=== PATIENT | male | born 1950 | race Caucasian/White ===

== ENCOUNTER 2016-12-31 09:46 | Inpatient (IN) | payer OTHER ==
[~2016-12-31] VITALS: Ht 180.3 cm; Wt 134.1 kg
[2016-12-31] VITALS (9 sets, daily range): BP systolic 111–142; BP diastolic 60–81; PULSE 76–99; RESP 16–20; O2SAT 92–98
[~2016-12-31 09:46] MED LIST: AMLO5TAB2 PO; ASPI-973 PO; Bupivacaine Liposome 1.3% 20 mL Inj INFILTRATE ONE; CeFAZolin Inj 3 GM in IV Premix IV ONE; GLIM1TAB PO; HYDR-3825 PO; LISI-567 PO; Lactated Ringer's 1,000 ML IV ONE; MELO-253 PO; METF1000 PO; METO25TA6 PO; MULT-1018 PO; NITR0.4T6 SL; OXYC5TAB72 PO; PRAV40TA PO; Vancomycin Inj 2,000 MG in 0.9% Sodium Chloride 500 ML IV ONE
[2016-12-31] MEDS ORDERED: Lactated Ringer's 1,000 ML IV ONE ×2 (10:30→13:20)
[2016-12-31] MEDS ORDERED: CeFAZolin Inj 2 gm / 50mL D5W IV ONE (11:13)
--- NOTE | 2016-12-31 11:28 | PCM.HPANE ---
Patient Data Surgeon Admitting Provider: Attending Provider:Wesley Be MD Primary Care Physician:Leo Mukherjee PA-C Other Provider:Heriberto Coretz Anesthesia Reason for Visit Left Knee Arthritis Ht/WT & BMI Height (Feet): 6 Height (Inches): 0 Weight (Kilograms): 131.8 Body Mass Index 39.00 Allergies Coded Allergies: atorvastatin (Verified Adverse Reaction, Severe, elevates ALT, 09/07/16) Past Anesthesia History Anesthesia History: Positive for:: Anesthesia Reactions (unable to do spinal at 09/2016 procedure), Difficult Intubation (required IV induction with glidescope last surgery), Denies:: Malignant Hyperthermia Diabetes History Hx Diabetes?: Yes Type of Diabetes: Type II Glycemic Control: Oral Medication Current Bedside Blood Glucose: 149 MRSA MRSA: No Medications Blood Thinner: Aspirin Hypertension Medication: Yes Home Meds Incl Beta Freddy: Yes Reported Medications Pravastatin 40 Mg [id number] Mg PO DAILY Ref 0 12/27/16 oxyCODONE 5 Mg Tablet5 Mg PO Q4H PRN For Pain Ref 0 12/27/16 Nitroglycerin SL 0.4 Mg Tab.subl0.4 Mg SL PRN For Chest Pain 12/27/16 Multivitamin (Multi Vitamin Daily)1 Each Tablet1 Each PO DAILY 30 Days Ref 0 12/27/16 Metoprolol Tartrate 25 Mg Lvafmo66 Mg PO BID 30 Days Ref 0 12/27/16 Metformin (Glucophage)1,000 Mg Tablet1,000 Mg PO BID Ref 0 12/27/16 Meloxicam 15 Mg Vtszmi13 Mg PO DAILY 30 Days Ref 0 12/27/16 Lisinopril 20 Mg Fxqgqg74 Mg PO DAILY 30 Days Ref 0 12/27/16 Hydrocodone-Acetaminophen 7.5-325 mg 1 Each Tablet1 Tablet PO Q4H PRN For Pain Ref 0 12/27/16 Glimepiride 1 Mg Tablet2 Mg PO DAILYAC #30 TABLET Ref 0 12/27/16 Aspirin 81 Mg Mhxxar89 Mg PO DAILY Ref 0 12/27/16 Amlodipine 5 Mg Tablet5 Mg PO DAILY Ref 0 12/27/16 Discontinued Reported Medications Meloxicam 15 Mg Cjtosi46 Mg PO DAILY 30 Days Ref 0 09/07/16 Omeprazole Magnesium (Prilosec Otc)20 Mg Tablet.dr20 Mg PO DAILY #1 PKG Ref 0 06/12/16 Nitroglycerin SL (Nitrostat)0.4 Mg Tab.subl0.4 Mg SL Q5MIN PRN For Chest Pain # 1 BOTTLE 06/12/16 Multivitamin (Multi Vitamin Daily)1 Each Tablet1 Each PO DAILY 30 Days Ref 0 06/12/16 Metoprolol Tartrate 25 Mg Isvfau87 Mg PO BID 30 Days Ref 0 06/12/16 Metformin (Glucophage)1,000 Mg Tablet1,000 Mg PO BID Ref 0 06/12/16 Lisinopril 20 Mg Vbfwvz12 Mg PO DAILY 30 Days Ref 0 06/12/16 Glimepiride 1 Mg Tablet2 Mg PO DAILYAC #30 TABLET Ref 0 06/12/16 Amlodipine 5 Mg Tablet5 Mg PO DAILY Ref 0 06/12/16 Last Time Dose Received Took metoprolol and amlodipine today Held ASA and meloxicam for over one week Held lisinopril and DM meds today History History of ENT Problems?: Yes HEENT History: Positive for:: Cataracts (hx of- ) Difficult Intubation (required IV induction with glidescope last surgery) Denies:: Hearing Problem Hx of Heart Problems?: Yes Cardiovascular History: Positive for:: Cardiac Surgery (CABG x 1 vessel 2010, heart cath 05/2011) Chest Pain (2010) Hypertension (hyperlipidemia) Denies:: AICD Heart Murmur Irregular Heartbeat Pacemaker Valvular Heart Disease Other History/Comments Cardiac and anesth records reviewed. No CP. Hx of Respiratory Problem?: Yes Respiratory History: Positive for:: Dyspnea (with heavy exertion ) Denies:: Asthma COPD Emphysema Oxygen Administration Pneumonia Tuberculosis Use of C-PAP Machine (FAHAD+, no electricity to run CPAP) Hx Neurologic Problems?: No Neurological History: Denies:: CVA Multiple Sclerosis Parkinson's Disease Seizures Hx of GI Problems?: Yes Gastrointestinal History: Positive for:: Gastroesphageal Reflux Heartburn Liver Disease (REDDY) Denies:: Cirrhosis Gall Bladder Disease Hx of Problems?: No Genitourinary History: Denies:: Kidney Stones Urinary Tract Infection Male Hx: Denies:: Prostate Problems Scrotal Mass Testicular Surgery Skin History: Denies:: History Skin Disorders? Pressure Ulcers Hx Musculoskeletal Problems?: Yes Musculoskeletal History: Positive for:: Degenerative Joint Joint Replacement (right knee 09/2016) Musculoskeletal Trauma (left knee current admission problem) Osteoarthritis Hx of Psycho/Social Problems?: No Hx Surgeries?: Yes (HEART CATH/CABG,LT ROTATOR CUFF RPR,RT KNEE SCOPE,RT GR TOE FUSION,UMBILICA) Hx Any Other Health Problems?: Yes Other History: Positive for:: Hospitalization Denies:: Cancer Endocrine Disease Thyroid Disease History Blood Transfusions: Positive for:: Accept Blood Products? Denies:: Blood Transfusions Hx Diabetes: YesBedside Blood Glucose: 149 Hx Alcohol Use: Yes (occasional )Hx Substance Use: No Smoking Status: Current Every Day Smoker Have You Smoked inLast 12 mo: Yes Stop/Bang S-Snoring: Do You Snore Loudly: Yes T-Tired: feel tired, fatigued: No O-Obsered: Observed not breath: No P-Blood Pressure: treated: Yes B- Body Mass Index > 35 kg/m2: Yes A- Age over 50: Yes N- Neck Large Circumference: Yes G- Gender Male: Yes FAHAD Total Score: 6 Risk Assessment Category Category 1A: Patient has history of documented sleep apnea, and HAS NOT received any narcotic, sedative or anesthesia administration during this stay. Category 1B: Patient has history of documented sleep apnea, and HAS received any narcotic , sedative or anesthesia administration during this stay Category 2: Patient has SUSPECTED Obstructive Sleep Apnea, and HAS received any narcotic , sedative or anesthesia administration during this stay. Category 3: Patient has SUSPECTED Obstructive Sleep Apnea and HAS NOT received narcotic, sedative or anesthesia administration during this stay. Category 4: Outpatient in Procedural Areas with known sleep apnea or who screen positive for High Risk via the STOP/BANG questionnaire. Exam Exam Vital Signs Vital Signs Date Time Temp Pulse Resp B/P Pulse Ox O2 Delivery O2 Flow Rate FiO2 12/31/16 10:59 36.0 76 18 142/76 96 Room Air General Appearance: Alert, Oriented X3 HEENT/AIRWAY: MP 3, Neck Movement (FROM) Lungs: Clear to Auscultation, Clear to Percussion Heart: Exam Unremarkable, Regular Rate/Rhythm Meds/Labs/Diagnostics Admission Meds Current Medications Lactated Ringer's (Lr) 1,000 ml @ ud STK-MED ONCE IV Last administered on 12/31t 10:30; Start 12/31/16 at 10:30; Stop 12/31/16 at 10:58; Status DC Bedside Blood Glucose: 149 Labs Test 12/31/16 10:47 Sodium Level 136mEq/L (134-144) Potassium Level 4.6mEq/L (3.5-5.2) Chloride Level 97mEq/L (97-108) Carbon Dioxide Level 27mmol/L (18-29) Blood Urea Nitrogen 16mg/dL (8-27) Creatinine 0.67mg/dL (0.76-1.27) Estimat Glomerular Filtration Rate 127mL/min (>59) Glucose Level 156mg/dL (60-99) Calcium Level 9.4mg/dL (8.5-10.1) Plan Impression Patient chart reviewed, patient interviewed and anesthestic plan with risks, benefits, and alternatives discussed, and informed consent obtained. NPO Status: 2199 ASA Physical Status: ASA3 Severe Disease Anesthetic Plan: Regional Block (FNB), SAB (With GA backup) Bene/Risks/Altern/Consents: Yes HP Complete Prior to Induction: Yes Tripp Burr MD Dec 31, 2016 11:28
[2016-12-31] MEDS ORDERED: Tranexamic Acid 100 mg/mL 10 mL Inj ONE (12:29)
[2016-12-31] MEDS ORDERED: Bupivacaine Liposome 1.3% 20 mL Inj ONE (12:29)
[2016-12-31] MEDS ORDERED: 0.9% Sodium Chloride 100 ML ONE (12:30)
[2016-12-31] MEDS ORDERED: Lactated Ringer's 1,000 ML IV SCH ×2 (13:31→16:40)
[2016-12-31] MEDS ORDERED: Lactated Ringer's 500 ML IV PRN (13:31)
[2016-12-31] MEDS ORDERED: Gentamicin 40 mg/mL 2 mL Inj IRRIGATION ONE (13:32)
[2016-12-31] MEDS ORDERED: Bupivacaine Liposome 1.3% 20 mL Inj INFILTRATE ONE (13:33)
[2016-12-31] MEDS ORDERED: Bupivacaine-MPF 0.25%/EPI 30 mL Inj INFILTRATE ONE (13:33)
[2016-12-31] MEDS ORDERED: Phenylephrine 10,000 mCg/mL Inj IVPUSH PRN (13:35)
[2016-12-31] MEDS ORDERED: fentaNYL-PF 50 mCg/mL 2 mL Inj IVPUSH PRN (13:35)
[2016-12-31] MEDS ORDERED: Labetalol 5 mg/mL 4 mL Inj IV PRN (13:35)
[2016-12-31] MEDS ORDERED: Ondansetron 2 mg/mL 2 mL Inj IVPUSH PRN (13:35)
[2016-12-31] MEDS ORDERED: EPHEDrine Sulfate 50 mg/mL Inj IVPUSH PRN (13:35)
[2016-12-31] MEDS ORDERED: MetoCLOpramide 5 mg/mL 2 mL Inj IVPUSH PRN (13:35)
[2016-12-31] MEDS ORDERED: Atropine 0.4 mg/mL Inj IVPUSH PRN (13:35)
[2016-12-31] MEDS ORDERED: HYDROmorphone 1 mg/mL Inj IVPUSH PRN (13:35)
--- NOTE | 2016-12-31 14:59 | PCM.ANEP2 ---
Post Anesthesia Evaluation ASA/CMS Post Anesthesia VS in Patient's Normal Range?: Yes Resp Stable; Airway Patent?: Yes CV Function & Hydration Stable: Yes Mental Status Recovered?: Yes Pain control Satisfactory?: Yes N/V Control Satisfactory?: Yes Tripp Burr MD Dec 31, 2016 14:59
--- NOTE | 2016-12-31 14:59 | PCM.ANEP1 ---
Post Anesthesia Phase 1 PACU Phase 1 Assessment Vital Signs Vital Signs Date Time Temp Pulse Resp B/P Pulse Ox O2 Delivery O2 Flow Rate FiO2 12/31/16 10:59 36.0 76 18 142/76 96 Room Air Anesthetic Administered: SAB Level of Alertness: Awake, talking SMALL's with Equal Strength: No (SAB) Pain: No Nausea or Vomiting: No Oxygen Delivery: Simple Mask Lungs: Clear to Auscultation, Clear to Percussion Summary See anesth record for PACU VS. PACU VSS Tripp Burr MD Dec 31, 2016 14:59
[2016-12-31] MEDS ORDERED: Lidocaine PF 1% 30 mL Inj ONE (16:21)
[2016-12-31] MEDS ORDERED: fentaNYL-PF 50 mCg/mL 2 mL Inj ONE (16:21)
[2016-12-31] MEDS ORDERED: Ropivacaine-PF 0.5% 30 mL Inj ONE (16:21)
[2016-12-31] MEDS ORDERED: Dexamethasone 4 mg/mL Inj ONE (16:21)
[2016-12-31] MEDS ORDERED: Propofol 10,000 mCg/mL 20 mL Inj ONE (16:21)
[2016-12-31] MEDS ORDERED: EPHEDrine/NS 5 mg/mL 5 mL Syringe ONE (16:21)
[2016-12-31] MEDS ORDERED: Phenylephrine/NS 100 mCg/mL 10 mL Syringe IVPUSH ONE (16:21)
[2016-12-31] MEDS ORDERED: Ondansetron 2 mg/mL 2 mL Inj ONE (16:21)
--- NOTE | 2016-12-31 16:23 | DRSVH ---
PROCEDURE: X-RAY LEFT KNEE, ONE OR TWO VIEWS ([id number]) INDICATIONS: POST LEFT TKA TECHNIQUE: 3 views of the knee acquired. COMPARISON: [facility], , XR KNEE ARTHRITIC SERIES LT, 11/21/2016, 13:44. FINDINGS: Bones: Patient is status post left knee joint arthroplasty. Hardware components are in expected pos itions with near-anatomic alignment. Visualized bony structures demonstrate no acute fractures. Soft tissues: Overlying postoperative changes are noted including a surgical drain. IMPRESSION: 1. Expected postsurgical changes status post left knee arthroplasty. Dictated by: Raheem Tamayo M.D. on 12/31/2016 at 16:21 Approved by: Raheem Tamayo M.D. on 12/31/2016 at 16:22
[2016-12-31] MEDS ORDERED: Ondansetron 8 mg ODT Tablet PO PRN (16:40)
[2016-12-31] MEDS ORDERED: Ondansetron 2 mg/mL 2 mL Inj IV PRN (16:40)
[2016-12-31] MEDS ORDERED: MetoCLOpramide 5 mg/mL 2 mL Inj IV PRN (16:40)
[2016-12-31] MEDS ORDERED: LORazepam 0.5 mg Tablet PO PRN (16:40)
[2016-12-31] MEDS ORDERED: diphenhydrAMINE 25 mg Capsule PO PRN (16:40)
[2016-12-31] MEDS ORDERED: oxyCODONE-Acetamin 5-325 mg Tablet PO PRN (16:40)
[2016-12-31] MEDS ORDERED: Alum-Mag Hydrox-Simeth 30 mL Suspension PO PRN (16:40)
[2016-12-31] MEDS ORDERED: Magnesium Hydroxide 10 mL Oral Concentration PO PRN (16:40)
[2016-12-31] MEDS ORDERED: hydrOXYzine Pamoate 25 mg Capsule PO PRN (16:40)
[2016-12-31] MEDS ORDERED: HYDROcodone-APAP 5-325 mg Tablet PO PRN (16:40)
[2016-12-31] MEDS ORDERED: Glucose 40% Oral Gel 15 Gm Tube PO PRN (19:25)
[2016-12-31] MEDS: CeFAZolin Inj 3 GM in Dextrose 5% 50 ML IV SCH (20:41)
[2016-12-31] MEDS: Insulin LISPRO Low-Dose Scale SUBQ SCH (21:27)
[2016-12-31] MEDS ORDERED: Vancomycin 1,000 mg/200 mL NS IV ONE (23:30)
[2016-12-31] MEDS ORDERED: Vancomycin Inj 2,000 MG in 0.9% Sodium Chloride 500 ML IV ONE (23:30)
[2017-01-01 00:29] VITALS: BP 122/69; PULSE 90; RESP 18; O2SAT 96
[2017-01-01] MEDS: Sodium Chloride LOK Flush 10 mL Syringe IV SCH ×3 (00:30→16:52)
--- NOTE | 2017-01-01 01:06 | OP ---
[address] [address] OPERATIVE REPORT PATIENT: VIDYA GARCIA : 1950 MR#: [id number] ADMIT: 12/31/2016 JOB ID: [id number] DATE OF SURGERY: 12/31/2016 PREOPERATIVE DIAGNOSIS(ES): Severe arthritis, left knee. POSTOPERATIVE DIAGNOSIS(ES): Severe arthritis, left knee. PROCEDURE: Total knee replacement. SURGEON: Wesley Be MD. WIRE BOUND BOX MACHINE OPERATOR: Bella Alves PA-C. Grey Stock Recorder required due to the major complexity of operation. INDICATIONS: Severe progressive osteoarthritis, symptoms uncontrolled by conservative treatment. The patient wishes to proceed with a total knee arthroplasty. Understands the potential for risks and complications, which include, but not limited to infection, neurovascular compromise, implant failure, among other things. PROCEDURE: The patient was prepped and draped in usual sterile fashion. An anteromedial approach was made. Patella was subluxed laterally, cut transversely, sized to a 32 component. Patellar protection plate was utilized. Drill hole placed in the distal femur. The patient had a profound valgus deformity with a hypoplastic lateral femoral condyle. Therefore, a 7 degree valgus femoral cut was utilized rather than the 5 degree, which produced appropriate distal femoral preparation. The femur was subsequently sized to a 9 chamfer cutting block, fixed, and chamfer cuts were made. component was provisionally fixed. It fit well and central drill holes were made. The tibia was cut with the extramedullary tool sized to an E tibial component. The Persona asymmetric tibia provided an excellent fit and the knee tracked superiorly well with fully congruent medial poly of 12 mm thickness. All meniscal tissue and osteophytes were carefully removed from the knee. The knee was irrigated with large quantities of sterile irrigant, pressurized lavage, was followed by pressurized cementation with excess cement removed during the curing process. Final construct was assembled. The tourniquet was let down and hemostasis was achieved. Deep Hemovac drain was left. The knee was closed with #2 Quill deep, followed by 2-0 Vicryl, 3-0, and a 4-0 intracuticular stitch. Steri-Strips were applied. The patient tolerated the procedure well. There were no complications.
[2017-01-01] MEDS ORDERED: 0.9% Sodium Chloride 250 ML ONE (05:04)
[2017-01-01 05:09] VITALS: BP 115/68; PULSE 88; RESP 18; O2SAT 99
[2017-01-01] MEDS: CeFAZolin Inj 3 GM in Dextrose 5% 50 ML IV SCH (05:11)
--- NOTE | 2017-01-01 06:15 | NUR ---
Pain Patient states his pain is 5/10. Good sensation in his toes and leg. A little numbness on top of knee still. Vitals stable. Patient A&Ox3. Patient on 2L O2 at 94%.
[2017-01-01 06:45] LABS: BASOPHILS % (AUTO) 0.1 % (0-3); EOSINOPHILS % (AUTO) 0 % (0-5); MONOCYTES % (AUTO) 6.4 % (4-12); Mean Corpuscular Hemoglobin 30.5 pg (27.0-35.0); Mean Corpuscular Volume 89.8 fL (81-100); NEUTROPHILS % (AUTO) 87.2 % (40-74); Platelet Count 247 bil/L (150-400)
[2017-01-01] MEDS: Insulin LISPRO Low-Dose Scale SUBQ SCH ×4 (08:46→20:29)
--- NOTE | 2017-01-01 09:10 | PCM.PNORTH ---
Subjective Date of Service: Jan 01, 2017 Visit Information: Reason for Visit Left Knee Arthritis Surgery/Surgery Date Post-Op Day # Date of Admission: Dec 31, 2016 at 16:20 Hospital Day # Subjective Found patient alert and awake and sitting up in bed. No complaints of pain at this time. Discussed anticipated discharge on a before postop day #3 without the availability of residential facility. Discussed purchase patient with formal therapy and encourage this. Patient indicates he has one step at home and I have asked him to discuss this with his physical therapist. Patient has recently undergone a right total knee arthroplasty in September 2016. Postop General: No Complaints, No Shortness of Breath, No Chest Pain, Good Appetite Pain Management: PO, IV Push Objective Exam Objective Orientation: Alert and oriented 3 and pleasant. Dressing: Interoperative dressing is clean dry and intact. Wound: Wound is not observed today. Compartments: Calf and thigh are soft and nontender. Mobility/sensation: Toe wiggle and sensation are intact at the left lower extremity distally. KAYLEN hose: None Nolen: In place and working Drain: Hemovac drain in place and working. Gait: No gait yet as of this time with formal physical therapy. Vital Signs and I/O Vital Sign - Last Date Time Temp Pulse Resp B/P Pulse Ox O2 Delivery O2 Flow Rate FiO2 01/01/17 05:09 36.8 88 18 115/68 99 Nasal Cannula 2.00 Intake and Output 12/31/16 12/31/16 01/01/17 Cumulative From/Thru 15:00 23:00 07:00 12/27/16 12:58 - 01/01/17 06:14 Intake Total 1770 ml 600 ml 1200 ml 3570 ml Output Total 350 ml 250 ml 1030 ml 1630 ml Balance 1420 ml 350 ml 170 ml 1940 ml Intake Oral 400 ml 1200 ml 1600 ml IV Total 1770 ml 200 ml 1970 ml Output Urine Total 300 ml 250 ml 800 ml 1350 ml Drainage Total 0 ml 230 ml 230 ml Estimated Blood Loss 50 ml 50 ml Lab & Micro Results Laboratory Tests Test 12/31/16 10:47 01/01/17 06:30 Sodium Level 136mEq/L (134-144) Potassium Level 4.6mEq/L (3.5-5.2) Chloride Level 97mEq/L (97-108) Carbon Dioxide Level 27mmol/L (18-29) Blood Urea Nitrogen 16mg/dL (8-27) Creatinine 0.67mg/dL (0.76-1.27) Estimat Glomerular Filtration Rate 127mL/min (>59) Glucose Level 156mg/dL (60-99) Calcium Level 9.4mg/dL (8.5-10.1) White Blood Count 14.7th/mm3 (3.8-10.1) Red Blood Count 4.30mil/mm3 (4.40-5.80) Hemoglobin 13.1g/dL (13.8-17.2) Hematocrit 38.6% (41.0-50.0) Mean Corpuscular Volume 89.8fL (81-100) Mean Corpuscular Hemoglobin 30.5pg (27.0-35.0) Mean Corpuscular Hemoglobin Concent 33.9% (32.0-37.0) Red Cell Distribution Width 11.8% (12.3-15.4) Platelet Count 247bil/L (150-400) Neutrophils (%) (Auto) 87.2% (40-74) Lymphocytes (%) (Auto) 6.1% (14-46) Monocytes (%) (Auto) 6.4% (4-12) Eosinophils (%) (Auto) 0% (0-5) Basophils (%) (Auto) 0.1% (0-3) Result Diagram: 01/01/17 0630 12/31/16 1047 General Appearance: Alert, Oriented X3, Cooperative, No Acute Distress Extremities: No Compartment Syndrom Noted, Thigh & Calf Soft/Nontender Postop Sensory Motor: Distal Motor Intact, Movement in Toes, Distal Sensation Intact SURGICAL WOUND : Drain Location Body Site: Knee Wound Drainage Type: Hemovac Activity: Activity per PT, Ambulate with PT (weightbearing as tolerated to the left lower extremity using a walker) Catheters: Urethral 2 Way Nolen Assessment & Plan Impression Patient is a 66-year-old gentleman who is diabetic and has BMI over 40. He has undergone a left total knee arthroplasty on 12/31/2016 and has in his recent past undergone a right total knee arthroplasty in September 2016. He is familiar with the recovery process and is attentive to his rehabilitation. Problems: Plan Postop day # 1 from left total knee arthroplasty on 12/31/[address] Wesley Be. Weight bearing status: Weightbearing as tolerated on the left lower extremity. Mobility aid: Front-wheeled walker Immobilization: None Precautions: Standard postoperative precautions with up with assist until cleared by physical therapy for independent mobility. Physical therapy: Continue formal physical therapy for mobility, gait and safety. Patient will begin outpatient physical therapy as soon as possible after discharge. Pain control: Continue by mouth pain control. Patient has sensitivity to acetaminophen so this will likely be performed with Roxicodone and Vistaril. DVT prophylaxis: Continue ASA 81 mg EC by mouth twice a day 6 weeks postop for DVT prophylaxis. Wound care: Keep surgical wound clean dry and covered. Nolen: In place and working. Nolen will be discontinued today after first PT session. Dressing: Interoperative dressing is clean dry and intact. This will be changed to a postoperative dressing tomorrow on postoperative day #2, 2016. Drain: Hemovac drain is in place and working. This will be discontinued today on postop day #1, 01/01/2017. KAYLEN hose: None. These will be ordered today with placement of the right thigh- high KAYLEN hose today and placement of the left thigh high KAYLEN hose on postop day 2 after dressing change. Nursing communication: Nursing please discontinue Nolen today after first PT session. Nursing please discontinue Hemovac drain today. Nursing please measure for and fit bilateral thigh-high KAYLEN hose. Right may be fitted today and left may be fit tomorrow after interoperative dressing change. 2-week follow-up: Follow-up in 2 weeks at [facility] orthopedic clinic on prearranged appointment with mid-level provider for wound check and suture removal. 6-week follow-up: Follow-up in 6 weeks at [facility] orthopedic clinic with Dr. Wesley Be with left two-view knee x-rays on arrival. Plan: Patient is encouraged to participate in formal physical therapy and will be discharged on a before postop day #3. Discharge instructions: Weightbearing as tolerated on the left lower extremity using front-wheeled walker. Keep surgical incision clean dry and covered. Incision may be showered on postop day #4 if wound is dry with no drainage. Do not submerge or soak the wound in a bathtub, hot tub or pool. Ice and elevate as needed for comfort. Work on gentle knee range of motion. Begin formal physical therapy as soon as possible after discharge. Discharge plan: Anticipate discharge to home with family has caregivers on or before postop day #3, 01/03/2017. VTE Prophylaxis: SCDs (SCD and right lower extremity), KAYLEN Hose (bilateral thigh-high KAYLEN hose), Other (ASA 81 mg EC by mouth twice a day 6 weeks postop for DVT prophylaxis.) Hany Ibrahim PA-C Jan 01, 2017 08:57
[2017-01-01] MEDS ORDERED: OMEP20TA24 PO (09:55)
--- NOTE | 2017-01-01 14:41 | NUR ---
Social Work- Screening/Readiness for Discharge: Data: Pt is a 66 year old male admitted 12/31/16 for left knee arthritis per H&P. Pts insurance is [employer]. Pts PCP is Leo Mukherjee PA-C. Pt has no LTC or VA benefits. EMR reviewed. SW met with pt at bedside to discuss discharge planning, SW role explained. Pt resides at home with where he remains independent with ADLs. Pt does not typically use DME and does drive. Pt has no HH or SNF history. SW discussed DPOA/Advanced Directive and encouraged patient to complete this form and bring a copy into the hospital. PT assessed pt and recommends home at this time with outpt PT. Pt informed social work that he already has outpt services scheduled. Pts to provide transport home at discharge. SW provided phone number and plan on white board. No anticipated discharge needs. SW continues to follow. Assessment: [place]. Plan: Anticipate patient to discharge home with to transport via POV. Pt to receive outpt services for PT. No anticipated discharge needs. SW continues to follow. Lina Laws MSW
--- NOTE | 2017-01-01 19:51 | NUR ---
D/C Hemovac Pt hemovac tube accidentally pulled out with PT this AM. D/C'd remaining drain, applied gauze and tegaderm dressing. BALTAZAR Reinoso was notified and changed pt dressing. WCTM for increased pain/swelling.
[2017-01-01 20:03] VITALS: BP 133/76; PULSE 105; RESP 20; O2SAT 96
[2017-01-02] MEDS: Sodium Chloride LOK Flush 10 mL Syringe IV SCH ×3 (00:48→16:30)
--- NOTE | 2017-01-02 04:30 | NUR ---
Pain/activity Pt experienced pain up to 7/10 once pt started to have full sensation of left knee. Pt reports pain is manageable taking 2 tablets of oxycodone q3-4 hrs. Pt desats while sleeping, on 2L O2 overnight with CPOx. SCD on right leg, BRAIN dressing is CDI on left knee. Pt reported having slept much better than the previous night.
[2017-01-02 05:36] VITALS: BP 132/64; PULSE 103; RESP 20; O2SAT 96
--- NOTE | 2017-01-02 06:07 | NUR ---
Callum Pt reporting full sensation to knee. Callum LANDAVERDE'd this morning at 0545, no issues. Pt given urinal and instructed to let staff know if he needs assistance.
--- NOTE | 2017-01-02 06:20 | PCM.PNORTH ---
Subjective Date of Service: Jan 02, 2017 Visit Information: Reason for Visit Left Knee Arthritis Surgery/Surgery Date Post-Op Day # Date of Admission: Dec 31, 2016 at 16:20 Hospital Day # Postop General: No Complaints, No Shortness of Breath, No Chest Pain, Good Appetite Pain Management: PO Objective Exam Objective Orientation: Alert and oriented 3 and pleasant. Dressing: Interoperative dressing is clean dry and intact. This is changed to a postoperative dressing this morning with ABDs and fishnet. Wound: Surgical wound is clean dry and intact with no focal swelling or erythema or swelling. Compartments: Calf and thigh are soft and nontender. Mobility/sensation: Toe wiggle and sensation are intact at left lower extremity distally. KAYLEN hose: Absent Nolen: Absent Drain: Absent Gait: Gait 25 feet with formal physical therapy yesterday on 01/01/2017. Vital Signs and I/O Vital Sign - Last Date Time Temp Pulse Resp B/P Pulse Ox O2 Delivery O2 Flow Rate FiO2 01/02/17 05:36 36.4 103 20 132/64 96 Nasal Cannula 2.00 Intake and Output 01/01/17 01/01/17 01/02/17 Cumulative From/Thru 15:00 23:00 07:00 12/27/16 12:58 - 01/01/17 18:45 Intake Total 640 ml 4210 ml Output Total 1000 ml 2630 ml Balance -360 ml 1580 ml Intake Oral 640 ml 2240 ml IV Total 1970 ml Output Urine Total 800 ml 2150 ml Drainage Total 200 ml 430 ml Estimated Blood Loss 50 ml Lab & Micro Results Laboratory Tests Test 01/01/17 06:30 White Blood Count 14.7th/mm3 (3.8-10.1) Red Blood Count 4.30mil/mm3 (4.40-5.80) Hemoglobin 13.1g/dL (13.8-17.2) Hematocrit 38.6% (41.0-50.0) Mean Corpuscular Volume 89.8fL (81-100) Mean Corpuscular Hemoglobin 30.5pg (27.0-35.0) Mean Corpuscular Hemoglobin Concent 33.9% (32.0-37.0) Red Cell Distribution Width 11.8% (12.3-15.4) Platelet Count 247bil/L (150-400) Neutrophils (%) (Auto) 87.2% (40-74) Lymphocytes (%) (Auto) 6.1% (14-46) Monocytes (%) (Auto) 6.4% (4-12) Eosinophils (%) (Auto) 0% (0-5) Basophils (%) (Auto) 0.1% (0-3) Hemoglobin A1c 7.7% (4.8-5.6) Result Diagram: 01/01/17 0630 12/31/16 1047 General Appearance: Alert, Oriented X3, Cooperative, No Acute Distress Extremities: No Compartment Syndrom Noted, Thigh & Calf Soft/Nontender Postop Sensory Motor: Distal Motor Intact, Movement in Toes, Distal Sensation Intact SURGICAL WOUND : Drain Location Body Site: Knee Wound Drainage Type: Hemovac Activity: Activity per PT, Ambulate with PT (weightbearing as tolerated to the left lower extremity using a walker) Catheters: None Assessment & Plan Impression Patient is postop day #2 from a left total knee arthroplasty performed on 2016. He has participated well with formal physical therapy on postop day 1 and anticipates additional good participation today. Patient plans on discharge to home either postoperative day 2 or 3. Patient relates he does have [place]. Problems: Plan Postop day # 2 from left total knee arthroplasty on 12/31/[address] Wesley Be. Weight bearing status: Weightbearing as tolerated on the left lower extremity. Mobility aid: Front-wheeled walker Immobilization: None Precautions: Standard postoperative precautions with up with assist until cleared by physical therapy for independent mobility. Physical therapy: Continue formal physical therapy for mobility, gait and safety. Patient will begin outpatient physical therapy on Saturday after discharge. Pain control: Continue by mouth pain control with Roxicodone. DVT prophylaxis: Continue ASA 81 mg EC by mouth twice a day 6 weeks postop for DVT prophylaxis. Wound care: Keep surgical wound clean dry and covered. Nolen: Absent Dressing: Interoperative dressing is clean dry and intact. Interoperative dressing is changed to postoperative dressing with EBD and fishnet. Wound looks very good with no focal swelling, erythema or drainage. Drain: Absent KAYLEN hose: None. Nursing communication: Nursing please send patient with bilateral thigh-high KAYLEN hose today. 2-week follow-up: Follow-up in [address] [facility] orthopedic clinic on prearranged appointment with mid-level provider for wound check and suture removal. 6-week follow-up: Follow-up in [address] [facility] orthopedic clinic with Dr. Wesley Be with left two-view knee x-rays on arrival. Plan: Patient is encouraged to participate in formal physical therapy and will be discharged on a before postop day #3. Discharge instructions: Weightbearing as tolerated on the left lower extremity using front-wheeled walker. Keep surgical incision clean dry and covered. Incision may be showered on postop day #4 if wound is dry with no drainage. Do not submerge or soak the wound in a bathtub, hot tub or pool. Ice and elevate as needed for comfort. Work on gentle knee range of motion. Begin formal physical therapy as soon as possible after discharge. Discharge plan: Anticipate discharge to home with family has caregivers on or before postop day #3, 01/03/2017. VTE Prophylaxis: SCDs (SCD and right lower extremity), KAYLEN Hose (bilateral thigh-high KAYLEN hose), Other (ASA 81 mg EC by mouth twice a day 6 weeks postop for DVT prophylaxis.) Hany Ibrahim PA-C Jan 02, 2017 06:20
[2017-01-02] MEDS ORDERED: Pantoprazole 40 mg ER24 Tablet PO SCH (06:30)
[2017-01-02 07:47] VITALS: BP 130/53; PULSE 94; RESP 16; O2SAT 96
[2017-01-02] MEDS: Insulin LISPRO Low-Dose Scale SUBQ SCH ×2 (07:50→11:48)
[2017-01-02 13:31] VITALS: BP 185/70; PULSE 115; RESP 18; O2SAT 95
--- NOTE | 2017-01-02 14:50 | PCM.DIORTH ---
Ortho Discharge Instruction Date of Service: Jan 02, 2017 Dates of Hospitalization Date of Hospital Admission Dec 31, 2016 at 16:20 Providers Admitting Physician: Wesley Be MD Primary Care Physician: Leo Mukherjee PA-C Attending Physician: Wesley Be MD Diet Discharge Diet: Low fat, Low Sodium, Heart Healthy, Diabetic Activity Discharge Activity-General: Try not to overdue, Be up and about, Balance rest and activity, Ice incision 3-5 time/day for 20min, Activity as pain allows, Activity as energy allows, No driving while taking narcotic Left Lower Extremity: Weight Bearing as tolerated Discharge Assist Device: Front Wheeled Walker Dressing and Incisional Care Discharge Dressing Care: Keep dressing clean, dry & intact, Change soiled dressing Discharge Hygiene: May shower (patient may shower on postop day #4 if incision has been dry for 24 hours.), DO NOT soak incision under water, NO bathtub, hot tub or whirlpool Additional Instructions Discharge Instructions Postop day # 2 from left total knee arthroplasty on 12/31/[address] Wesley Be. Weight bearing status: Weightbearing as tolerated on the left lower extremity. Mobility aid: Front-wheeled walker Immobilization: None Precautions: Standard postoperative precautions with up with assist until cleared by physical therapy for independent mobility. Physical therapy: Continue formal physical therapy for mobility, gait and safety. Patient will begin outpatient physical therapy on Saturday after discharge. Pain control: Continue by mouth pain control with Roxicodone. DVT prophylaxis: Continue ASA 81 mg EC by mouth twice a day 6 weeks postop for DVT prophylaxis. Wound care: Keep surgical wound clean dry and covered. Nolen: Absent Dressing: Interoperative dressing is clean dry and intact. Interoperative dressing is changed to postoperative dressing with EBD and fishnet. Wound looks very good with no focal swelling, erythema or drainage. Drain: Absent KAYLEN hose: None. Nursing communication: Nursing please send patient with bilateral thigh-high KAYLEN hose today. 2-week follow-up: Follow-up in 2 weeks at [facility] orthopedic clinic on prearranged appointment with mid-level provider for wound check and suture removal. 6-week follow-up: Follow-up in 6 weeks at [facility] orthopedic clinic with Dr. Wesley Be with left two-view knee x-rays on arrival. Plan: Patient is encouraged to participate in formal physical therapy and will be discharged on a before postop day #3. Discharge instructions: Weightbearing as tolerated on the left lower extremity using front-wheeled walker. Keep surgical incision clean dry and covered. Incision may be showered on postop day #4 if wound is dry with no drainage. Do not submerge or soak the wound in a bathtub, hot tub or pool. Ice and elevate as needed for comfort. Work on gentle knee range of motion. Begin formal physical therapy as soon as possible after discharge. Discharge plan: Anticipate discharge to home with family has caregivers on or before postop day #3, 01/03/2017. Follow Up Plan Follow Up Plan Patient will be seen at 2 weeks, 6 weeks and 12 weeks postoperatively. Patient will be seen when necessary in the interim. Follow-up Provider (F9): Wesley Be MD Mid-level Provider (F9): Bella Alves PA-C Follow-up appointment: Weeks (Patient will be seen at 2 weeks, 6 weeks and 12 weeks postoperatively. Patient will be seen when necessary in the interim.) Call your provider for: Fever, Chills, Shortness of breath, Vomitting, Drainage at incision Hany Ibrahim PA-C Jan 02, 2017 14:50
[2017-01-02] MEDS ORDERED: OXYC5TAB72 PO (14:58)
[2017-01-02] MEDS ORDERED: DOCU-41 PO (14:58)
[2017-01-02] MEDS ORDERED: ASPI-973 PO (14:58)
--- NOTE | 2017-01-02 15:00 | NUR ---
Social Work- Discharge Data: EMR reviewed. Pt is on day 2 of hospitalization for left knee arthritis per H&P. Pt to discharge home today. PT recommending outpatient physical therapy. Pt to discharge home with to transport via POV. No discharge needs. Assessment: [place]. Plan: Pt is medically stable for discharge today. Pt to receive outpt PT. Pt to discharge home with to transport. No discharge needs. SARAH Dhillon
--- NOTE | 2017-01-02 15:01 | PCM.DC.ORT ---
Discharge Summary Date of Service: Jan 02, 2017 Date of Hospital Admission: Dec 31, 2016 at 16:20 Date of Surgery: Dec 31, 2016 Date of Discharge: Jan 02, 2017 Reason for Hospitalization: Severe left knee osteoarthritis Procedures Performed: Left total knee arthroplasty Hospital Course: Patient was admitted through the preoperative care unit on 12/31/2016 and upon processing was taken to the operating room where his procedure was performed without incident. Upon awakening patient was taken to the postoperative care unit after recovery from anesthesia and was taken to the orthopedic care unit where he participated well with formal physical therapy and received a recommendation for discharge to home with family his caregivers on 01/02/2017. Problems: (1) Osteoarthritis Status: Acute ICD Code: M19.90 Disposition: Discharge to home with family as caregiver Orthopedic Follow up Plan: In Two Weeks in my clinic (follow-up in 2 weeks [facility] orthopedic clinic on prearranged appointment with mid-level provider for wound check and suture removal.) Discharge Instructions: Postop day # 2 from left total knee arthroplasty on 12/31/[address] Wesley Be. Weight bearing status: Weightbearing as tolerated on the left lower extremity. Mobility aid: Front-wheeled walker Immobilization: None Precautions: Standard postoperative precautions with up with assist until cleared by physical therapy for independent mobility. Physical therapy: Continue formal physical therapy for mobility, gait and safety. Patient will begin outpatient physical therapy on Saturday after discharge. Pain control: Continue by mouth pain control with Roxicodone. DVT prophylaxis: Continue ASA 81 mg EC by mouth twice a day 6 weeks postop for DVT prophylaxis. Wound care: Keep surgical wound clean dry and covered. Nolen: Absent Dressing: Interoperative dressing is clean dry and intact. Interoperative dressing is changed to postoperative dressing with EBD and fishnet. Wound looks very good with no focal swelling, erythema or drainage. Drain: Absent KAYLEN hose: None. Nursing communication: Nursing please send patient with bilateral thigh-high KAYLEN hose today. 2-week follow-up: Follow-up in 2 weeks at [facility] orthopedic clinic on prearranged appointment with mid-level provider for wound check and suture removal. 6-week follow-up: Follow-up in 6 weeks at [facility] orthopedic clinic with Dr. Wesley Be with left two-view knee x-rays on arrival. Plan: Patient is encouraged to participate in formal physical therapy and will be discharged on a before postop day #3. Discharge instructions: Weightbearing as tolerated on the left lower extremity using front-wheeled walker. Keep surgical incision clean dry and covered. Incision may be showered on postop day #4 if wound is dry with no drainage. Do not submerge or soak the wound in a bathtub, hot tub or pool. Ice and elevate as needed for comfort. Work on gentle knee range of motion. Begin formal physical therapy as soon as possible after discharge. Discharge plan: Anticipate discharge to home with family has caregivers on or before postop day #3, 01/03/2017. Management Plan: Patient will be seen at 2 weeks, 6 weeks and 12 weeks postoperatively. Patient will be seen when necessary in the interim. Amlodipine (Amlodipine) 5 Mg Tablet 5 MG PO DAILY Aspirin (Aspirin) 81 Mg Tablet 81 MG PO BID Docusate Sodium (Colace) 100 Mg Capsule 100 MG PO BID Glimepiride (Glimepiride) 1 Mg Tablet 2 MG PO DAILYAC Lisinopril (Lisinopril) 20 Mg Tablet 20 MG PO DAILY Metformin (Glucophage) 1,000 Mg Tablet 1,000 MG PO BID Metoprolol Tartrate (Metoprolol Tartrate) 25 Mg Tablet 25 MG PO BID Multivitamin (Multi Vitamin Daily) 1 Each Tablet 1 EACH PO DAILY Nitroglycerin SL (Nitroglycerin SL) 0.4 Mg Tab.subl 0.4 MG SL PRN For Chest Pain Omeprazole Magnesium (Prilosec Otc) 20 Mg Tablet.dr 20 MG PO DAILY Pravastatin (Pravastatin) 40 Mg Tablet 40 MG PO DAILY oxyCODONE (oxyCODONE) 5 Mg Tablet 5-10 MG PO Q4-6H PRN PRN For Severe Pain Hany Ibrahim PA-C Jan 02, 2017 15:01
[2017-01-02 16:08] VITALS: BP 112/73; PULSE 98; RESP 16; O2SAT 93
--- NOTE | 2017-01-02 16:43 | NUR ---
POST-OP PROGRESS/DISCHARGE Oxicodone 10 mg PO has been helpful for pain control. Tolerating liquids PO and his diet well. Denies nausea. No emesis noted. Denies SOB. Patients PO2 on RA is 93-95 %. On O2 while napping due to ? FAHAD. Per patient he refused to get tested for FAHAD or have a CPAP. Patient has been able to void X 2 after his IFC has been d/cd. Voided without any problems. + BM this shift. Ambulated multiple times in the room with SBA and the FWW. Tolerated activity well. Cleared by PT to D/C. Dressing is CDI. Herve hose are on at this time. IV saline lock d/cd. Discharge instructions, care notes and prescription was given to the patient and he verbalized understanding. Discharged to home with his and all his personal belonging. (Per patient he already has his out patient PT scheduled on Saturday).
== END 2017-01-02 16:30 | disposition home or self-care (01) | DRG 470 ==
LOC: SAS 09:46 → OSC 16:20
PROVIDERS: ADMIT Orthopaedic Surgery; ATTEND Orthopaedic Surgery
PROC: 0SRD0J9 Replacement of Left Knee Joint with Synthetic Substitute, Cemented, Open Approach (ICD-10-PCS; principal; 2016-12-31 12:00)
DX: M17.12 Unilateral primary osteoarthritis, left knee (principal); Z68.41 Body mass index [BMI] 40.0-44.9, adult; I10 Essential (primary) hypertension; E11.9 Type 2 diabetes mellitus without complications; G47.33 Obstructive sleep apnea (adult) (pediatric); Z87.891 Personal history of nicotine dependence